=== PATIENT | male | born 2000 | race Caucasian/White ===

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

== ENCOUNTER 2020-03-28 18:57 | Emergency (ER) | payer BC ==
[~2020-03-28] VITALS: Ht 182.9 cm; Wt 104.5 kg
[~2020-03-28 18:57] MED LIST changes: +AMOXICILLIN500 MG PO; +CIPROFLOXACN500 MG PO
[2020-03-28] MEDS ORDERED: AMOXICILLIN500 MG PO (21:08)
[2020-03-28 21:35] VITALS: BP 147/72
== END 2020-03-28 21:35 | disposition home or self-care (01) | DRG 179 ==
LOC: ED 18:57
DX: U07.1 COVID-19 (principal); Z20.818 Contact with and (suspected) exposure to other bacterial communicable diseases

== ENCOUNTER 2020-10-04 18:00 | Emergency (ER) | payer BC ==
[~2020-10-04] VITALS: Ht 182.9 cm; Wt 105.0 kg
[2020-10-04 20:55] VITALS: BP 139/81
== END 2020-10-04 20:55 | disposition home or self-care (01) | DRG 605 ==
LOC: ED 18:00
DX: S61.012A Laceration without foreign body of left thumb without damage to nail, initial encounter (principal); W45.8XXA Other foreign body or object entering through skin, initial encounter; Y93.89 Activity, other specified; Y92.009 Unspecified place in unspecified non-institutional (private) residence as the place of occurrence of the external cause

== ENCOUNTER 2021-08-23 06:04 | Day surgery (SDC) | payer BC ==
[2021-08-23] MEDS ORDERED: PERCOCET 5/325M1 TAB PO (08:03)
[2021-08-23 09:31] VITALS: BP 118/64
== END 2021-08-23 09:49 | disposition home or self-care (01) | DRG 419 ==
LOC: ORM 06:04
PROVIDERS: ATTEND Surgery
PROC: 0FT44ZZ Resection of Gallbladder, Percutaneous Endoscopic Approach (ICD-10-PCS; principal; 2021-08-23)
DX: K80.10 Calculus of gallbladder with chronic cholecystitis without obstruction (principal); F17.210 Nicotine dependence, cigarettes, uncomplicated
CPT/HCPCS: J0131; J1610; Q9967

== ENCOUNTER 2022-08-01 23:03 | Emergency (ER) | payer BC ==
[~2022-08-01] VITALS: Ht 185.4 cm; Wt 104.0 kg
[~2022-08-01 23:03] MED LIST changes: +PERCOCET 5/325M1 TAB PO
[2022-08-02] MEDS ORDERED: PAXLOVID PO (02:45)
[2022-08-02 03:25] VITALS: BP 133/83
== END 2022-08-02 03:26 | disposition home or self-care (01) | DRG 179 ==
LOC: ED 23:03
DX: U07.1 COVID-19 (principal)